=== PATIENT | female | born 1980 | race Two or more races ===

== ENCOUNTER 2017-08-14 11:55 | Outpatient (CLI) | payer OTHER | END 2017-08-14 12:15 | disposition home or self-care (01) | LOC: SONOGRAMA 11:55 | DX: R93.8 Abnormal findings on diagnostic imaging of other specified body structures (principal) ==

== ENCOUNTER 2017-09-08 11:36 | Outpatient (CLI) | payer OTHER | END 2017-09-08 11:49 | disposition home or self-care (01) | LOC: SONOGRAMA 11:36 | DX: N83.202 Unspecified ovarian cyst, left side (principal); N83.201 Unspecified ovarian cyst, right side ==

== ENCOUNTER 2017-09-22 11:58 | Outpatient (CLI) | payer OTHER | END 2017-09-22 15:43 | disposition home or self-care (01) | LOC: SONOGRAMA 11:58 | DX: N83.291 Other ovarian cyst, right side (principal) ==

== ENCOUNTER → 2017-11-11 | Outpatient (CLI) | payer OTHER | END | disposition home or self-care (01) | LOC: MAMO-SONO 10:45 → SONOGRAMA 13:14 | DX: R93.8 Abnormal findings on diagnostic imaging of other specified body structures (principal); N83.291 Other ovarian cyst, right side ==

== ENCOUNTER 2019-01-27 12:45 | Inpatient (IN) | payer OTHER ==
[~2019-01-27] VITALS: Ht 157.5 cm; Wt 63.5 kg
[2019-01-29] MEDS ORDERED: PRENATAL CAPLE1 EAC1 PO (13:48)
[2019-01-29] MEDS ORDERED: ASPIR 8181 MG PO (13:49)
[2019-01-29] MEDS ORDERED: FOLIC ACID0.8 M1 PO (13:49)
== END 2019-01-31 16:33 | disposition home or self-care (01) | DRG 807 ==
LOC: O/R 12:45 → LDR 01-29 13:06 → SURG-SUITE 01-29 19:29 → OB/GYN 02-03 12:45
PROVIDERS: ADMIT Obstetrics & Gynecology
PROC: 10E0XZZ Delivery of Products of Conception, External Approach (ICD-10-PCS; principal; 2019-01-29)
PROC: 0W8NXZZ Division of Female Perineum, External Approach (ICD-10-PCS; 2019-01-29)
PROC: 4A1HXCZ Monitoring of Products of Conception, Cardiac Rate, External Approach (ICD-10-PCS; 2019-01-29)
DX: O80 Encounter for full-term uncomplicated delivery (principal); Z37.0 Single live birth; Z3A.38 38 weeks gestation of pregnancy

== ENCOUNTER 2020-12-21 15:30 | Inpatient (IN) | payer OTHER ==
[~2020-12-21] VITALS: Ht 160 cm; Wt 60.3 kg
[~2020-12-21 15:30] MED LIST: ASPIR 8181 MG PO; FOLIC ACID0.8 M1 PO; PRENATAL CAPLE1 EAC1 PO
[2020-12-22] MEDS ORDERED: PREDNISONE 5MG PO (14:13)
== END 2020-12-24 15:56 | disposition home or self-care (01) | DRG 807 ==
LOC: LDR 12-22 13:33 → OB/GYN 12-22 21:56 → LDR 01-05 15:30
PROVIDERS: ADMIT Obstetrics & Gynecology; ATTEND Obstetrics & Gynecology
PROC: 10E0XZZ Delivery of Products of Conception, External Approach (ICD-10-PCS; principal; 2020-12-22)
PROC: 0HQ9XZZ Repair Perineum Skin, External Approach (ICD-10-PCS; 2020-12-22)
PROC: 3E033VJ Introduction of Other Hormone into Peripheral Vein, Percutaneous Approach (ICD-10-PCS; 2020-12-22)
PROC: 4A1HXFZ Monitoring of Products of Conception, Cardiac Rhythm, External Approach (ICD-10-PCS; 2020-12-22)
DX: O34.211 Maternal care for low transverse scar from previous cesarean delivery (principal); O70.0 First degree perineal laceration during delivery; Z37.0 Single live birth; Z3A.38 38 weeks gestation of pregnancy